=== PATIENT | female | born 1950 | race Caucasian/White ===

== ENCOUNTER → 2017-10-03 | Outpatient (CLI) | payer MEDICARE, OTHER | END | disposition home or self-care (01) | LOC: PCVCIMAG 08:21 | DX: I25.10 Atherosclerotic heart disease of native coronary artery without angina pectoris (principal); I10 Essential (primary) hypertension; E78.00 Pure hypercholesterolemia, unspecified; I73.9 Peripheral vascular disease, unspecified; K21.9 Gastro-esophageal reflux disease without esophagitis; M79.652 Pain in left thigh; R94.31 Abnormal electrocardiogram [ECG] [EKG]; M79.651 Pain in right thigh; Z95.1 Presence of aortocoronary bypass graft; Z79.82 Long term (current) use of aspirin; Z79.899 Other long term (current) drug therapy | CPT/HCPCS: 93005; 93306; 93978; G0463 ==

== ENCOUNTER → 2018-05-01 | Outpatient (CLI) | payer MEDICARE ==
[~2018-05-01] MED LIST: REGADENOSON 0.4 MG/5 ML DISP.SYRIN. IV ONE
--- NOTE | 2018-05-01 13:01 | PCVCIMAG ---
APPROVED REPORT Imaging Protocol: Rest Tc-99m/Stress Tc-99m 1 day Study performed: 05/01/2018 10:44:06 Indication: Chest pain, CAD Patient Location: Out-Patient Stress Nurse: Zeynep Powell RN, Elin Mayberry RN NM Tech:William DevlinTANIA Ht: 5 ft 6 in Wt: 222 lbs BSA: 2.09 m2 HR: 57 bpm BP: 144/97 mmHg BMI: 35.82 Rhythm: Sinus Bradycarda, RBBB Medical History Medical History: Age, Hyperlipidemia, HTN, CAD, Dm Insulin Medications: Albuterol, ASA, Atovastatin, Carvedilolol, Plavix, Lasix, Isosorbide, Insulin, Metformin Allergies: None interferring with test Previous Cardiac Procedures: CABG, PCI Pretest Chest Pain Characteristics: No chest pain Exercise History: Sedentary Physical Disabilities: Uses a canSkubana Held (24 hrs): Carvedilol, Isosorbide Resting Data Rest SPECT myocardial perfusion imaging was performed in supine position 45 minutes following the intravenous injection of 10 mCi of Tc-99m Sestamibi. Time of rest injection: 1015 Date: 05/01/2018 Administration Route: IV Administration Site: Right AC Pharmacologic Stress Pharmacologic stress test was performed by injecting Regadenoson 0.4 mg IV push over 10-15 seconds immediately followed by the intravenous injection of 34.8 mCi of Tc-99m Sestamibi. Time of stress injection: 1130 Date: 05/01/2018 Administration Route: IV Administration Site: Right AC Gated Stress SPECT was performed 45 minutes after stress injection. The images were gated to evaluate regional wall motion and calculate left ventricular ejection fraction. Stress Test Details Stress Test: Pharmacologic stress testing performed using 0.4 mg of regadenoson per 5 mL given IV over 10 seconds. Reason for pharmacologic stress test: Gait instability, uses walker. HRMax Heart Rate (APMHR): 155 bpm Resting HR: 57 bpmTarget HR (85% APMHR): 131 bpm Max HR Achieved: 85 bpm % of APMHR: 54 Recovery HR: 70 bpm BP Resting BP: 144/97 mmHg Max BP: 130/65 mmHg Recovery BP: 169/75 mmHg ECG Resting ECG: Sinus Bradycardia, RBBB Stress ECG: Sinus Rhythm, RBBB ST Change: Non-ischemic Arrhythmia: PVC's Recovery ECG: Sinus Rhythm, RBBB Clinical Reason for Termination: Completed protocol Stress Symptoms: Dyspnea Symptoms resolved with caffeine. Study Quality Study: Good Study Data Post stress, the left ventricular ejection was 71%.. SSS: 7 SRS: 5 SDS: 4 TID = 0.77. Perfusion There is a medium area of moderately reduced uptake in the basal and mid segment of the inferolateral wall which is seen on the stress images and improves on the resting images. Wall Motion Normal left ventricular wall motion. Nuclear Conclusion ECG Findings: negative for ischemia Clinical Findings: non-diagnostic Nuclear Findings: positive for ischemia Exercise Capacity: not assessed Left Ventricular Function: normal This study reveals a small infarct in the mid to basal inferolateral segment with moderate ischemia. There is normal LV systolic function.
== END | disposition home or self-care (01) ==
LOC: PCVCIMAG 09:43
PROVIDERS: ATTEND Internal Medicine Cardiovascular Disease
DX: I25.10 Atherosclerotic heart disease of native coronary artery without angina pectoris (principal); E78.5 Hyperlipidemia, unspecified; I10 Essential (primary) hypertension; R07.9 Chest pain, unspecified; E11.9 Type 2 diabetes mellitus without complications; R60.9 Edema, unspecified; Z79.82 Long term (current) use of aspirin; Z79.4 Long term (current) use of insulin; J45.909 Unspecified asthma, uncomplicated
CPT/HCPCS: 78452; 93017; A9500; G0463; J2785

== ENCOUNTER → 2018-10-09 | Outpatient (CLI) | payer MEDICARE | END | disposition home or self-care (01) | LOC: PCVCCLINIC 14:10 | PROVIDERS: ATTEND Internal Medicine Cardiovascular Disease | DX: I25.10 Atherosclerotic heart disease of native coronary artery without angina pectoris (principal); I10 Essential (primary) hypertension; E78.00 Pure hypercholesterolemia, unspecified; R60.9 Edema, unspecified; E78.5 Hyperlipidemia, unspecified; Z79.84 Long term (current) use of oral hypoglycemic drugs | CPT/HCPCS: 93005; G0463 ==

== ENCOUNTER → 2019-04-10 | Outpatient (CLI) | payer MEDICARE ==
--- NOTE | 2019-04-10 15:22 | PCVCIMAG ---
APPROVED REPORT Study performed: 04/10/2019 14:22:52 EXAM: Comprehensive 2D, Doppler, and color-flow Echocardiogram Patient Location: Echo lab Status: routine BSA: 2.07 HR: 59 bpmBP: 128/80 mmHg Rhythm: NSR Other Information Study Quality: Adequate Risk Factors: Cardiac Risk Factors: HTN, Hyperlipidemia Indications CAD Edema, CABG 2D Dimensions IVSd: 8.94 (7-11mm) LVDd: 48.61 mm PWd: 11.31 (7-11mm)Ascending Ao: 31.39 (22-36mm) LVDs: 30.18 (25-40mm) Left Atrium: 48.24 (27-40mm) Aortic Root: 28.09 mm LV Single Plane 4CH: 49.25 % LV Single Plane 2CH: 53.63 % Biplane EF: 50.3 % Volumes Left Atrial Volume (Systole) Single Plane 4CH: 69.05 mLSingle Plane 2CH: 42.35 mL LA ESV Index: 27.00 mL/m2 Aortic Valve AoV Peak Frederic.: 0.97 m/s AO Peak Gr.: 3.80 mmHgLVOT Max P.59 mmHg LVOT Max V: 0.95 m/s Mitral Valve E/A Ratio: 1.9 MV Decel. Time: 279.27 ms MV E Max Frederic.: 1.15 m/s MV A Frederic.: 0.59 m/s TDI E/Lateral E': 14.38E/Medial E': 23.00 Medial E' Frederic.: 0.05 m/s Lateral E' Frederic.: 0.08 m/s Pulmonary Vein P Vein S: 0.42 m/sP Vein A: 0.31 m/s P Vein D: 0.57 m/sP Vein A Dur.: 72.7 msec P Vein S/D Ratio: 0.74 Left Ventricle The left ventricle is normal size. There is normal LV segmental wall motion. There is normal left ventricular wall thickness. Left ventricular systolic function is normal. The left ventricular ejection fraction is within the normal range. LVEF is 55-60%. Moderate diastolic dysfunction is present (pseudonormal filling). Right Ventricle The right ventricle is normal size. The right ventricular systolic function is normal. Atria The left atrium size is normal. The right atrium size is normal. Aortic Valve The aortic valve is normal in structure. No aortic regurgitation is present. There is no aortic valvular stenosis. Mitral Valve The mitral valve is normal in structure. There is no mitral valve regurgitation noted. No evidence of mitral valve stenosis. Tricuspid Valve The tricuspid valve is normal in structure. There is no tricuspid valve regurgitation noted. Pulmonic Valve The pulmonary valve is normal in structure. There is no pulmonic valvular regurgitation. Great Vessels The aortic root is normal in size. IVC is normal in size and collapses >50% with inspiration. Pericardium There is no pericardial effusion. <Conclusion> The left ventricle is normal size. There is normal left ventricular wall thickness. Left ventricular systolic function is normal. The left atrium size is normal. The aortic valve is normal in structure. There is no mitral valve regurgitation noted. There is no tricuspid valve regurgitation noted. Moderate diastolic dysfunction is present (pseudonormal filling).
== END | disposition home or self-care (01) ==
LOC: PCVCIMAG 14:03
PROVIDERS: ATTEND Internal Medicine Cardiovascular Disease
DX: I25.10 Atherosclerotic heart disease of native coronary artery without angina pectoris (principal); I10 Essential (primary) hypertension; R60.9 Edema, unspecified; Z95.1 Presence of aortocoronary bypass graft; Z88.8 Allergy status to other drugs, medicaments and biological substances; E78.00 Pure hypercholesterolemia, unspecified; Z79.82 Long term (current) use of aspirin; Z79.899 Other long term (current) drug therapy; Z79.4 Long term (current) use of insulin
CPT/HCPCS: 93005; 93306; G0463

== ENCOUNTER → 2019-04-19 | Outpatient (CLI) | payer MEDICARE ==
--- NOTE | 2019-04-19 15:59 | PCVCIMAG ---
EXAM: AORTOILIAC DUPLEX INDICATION: Peripheral arterial disease FINDINGS: AORTA: Suprarenal aorta measures maximum diameter of 2.7 cm. There is not a fusiform infrarenal aortic aneurysm. The infrarenal aorta measures maximum diameter of 2.2 cm. No aortic stenosis. RIGHT COMMON ILIAC ARTERY: Maximum diameter is 1.0 cm. No significant stenosis. RIGHT EXTERNAL ILIAC ARTERY: No significant stenosis. LEFT COMMON ILIAC ARTERY: Maximum diameter is 1.0 cm. No significant stenosis. LEFT EXTERNAL ILIAC ARTERY: No significant stenosis. IMPRESSION: No abdominal aortic aneurysm. No aortoiliac stenosis seen. LOC:[id number]
== END | disposition home or self-care (01) ==
LOC: PCVCIMAG 11:18
PROVIDERS: ATTEND Internal Medicine Cardiovascular Disease
DX: I73.9 Peripheral vascular disease, unspecified (principal); M79.651 Pain in right thigh; M79.652 Pain in left thigh; E78.01 Familial hypercholesterolemia
CPT/HCPCS: 93978